=== PATIENT | female | born 1935 | race Caucasian/White ===

== ENCOUNTER 2016-11-22 05:07 | Inpatient (IN) | payer OTHER ==
[2016-11-22] VITALS (21 sets, daily range): BP systolic 106–143
[~2016-11-22] VITALS: Ht 160 cm; Wt 83.9 kg
[2016-11-22] MEDS ORDERED: CLINDAMYCIN 600 mg/50mL D5W 50 ML IV ONE (06:58)
[2016-11-22] MEDS ORDERED: LEVOFLOXACIN 500 MG/D5W 100 ML IV ONE ×2 (07:00→09:15)
[2016-11-22] MEDS ORDERED: CLINDAMYCIN PHOS 600 MG/ D5W 50 ML PREMIX IV ONE (07:00)
[2016-11-22] MEDS ORDERED: POLYMYXIN 500,000/BACIT.10,000 UNITS in NS IRR 1 L IR ONE ×2 (07:33→08:54)
[2016-11-22] MEDS ORDERED: SEVOFLURANE 15 MIN GAS INH ONE (07:45)
[2016-11-22] MEDS ORDERED: fentaNYL CITRATE 250 MCG/5 ML AMP IV ONE (07:45)
[2016-11-22] MEDS ORDERED: LR 1,000 ML IV.SOLN IV ONE (07:45)
[2016-11-22] MEDS ORDERED: CLINDAMYCIN PHOSPHATE 600 mg/50mL D5W IV ONE (07:45)
[2016-11-22] MEDS ORDERED: ROCURONIUM BROMIDE 10 MG/ML (ZEMURON) IV ONE (07:45)
[2016-11-22] MEDS ORDERED: PROPOFOL 200MG/ 20ML VIAL (DIPRIVAN) IV ONE (07:45)
[2016-11-22] MEDS ORDERED: LEVOFLOXACIN 500 MG/D5W 100 ML PIGGYBACK IV ONE (07:45)
[2016-11-22] MEDS ORDERED: BUPIVACAINE /PF 0.25% 30 ML VIAL INJ ONE (07:45)
[2016-11-22] MEDS ORDERED: FLUMAZENIL 0.1 MG/ML IVP ONE (07:45)
[2016-11-22] MEDS ORDERED: MIDAZOLAM HCL 5 MG/5 ML VIAL IVP ONE (07:45)
[2016-11-22] MEDS ORDERED: AMLO5TAB4 PO (08:31)
[2016-11-22] MEDS ORDERED: PRAV40TA PO (08:31)
[2016-11-22] MEDS ORDERED: LOSA100T11 PO (08:31)
[2016-11-22] MEDS ORDERED: HYDR25TA4 PO (08:31)
[2016-11-22] MEDS ORDERED: GABA-533 PO (08:31)
[2016-11-22] MEDS ORDERED: INSU10VI4 SUBCUT (08:31)
[2016-11-22] MEDS ORDERED: TOPXL100 PO (08:31)
[2016-11-22] MEDS ORDERED: LR 1,000 ML IV SCH (08:46)
[2016-11-22] MEDS ORDERED: METOCLOPRAMIDE HCL 10 MG/2 ML VIAL IVP PRN (09:00)
[2016-11-22] MEDS ORDERED: MORPHINE 4 MG/ML INJ. SYRINGE IVP PRN ×3 (09:00)
[2016-11-22] MEDS ORDERED: HYDROcodone/ACETAMIN 5-325 MG TAB (NORCO/ VICODIN) PO PRN ×2 (09:15)
[2016-11-22] MEDS ORDERED: ONDANSETRON HCL 4 MG/2 ML VIAL IVP PRN (09:15)
[2016-11-22] MEDS ORDERED: ACETAMINOPHEN 325 MG TABLET PO PRN (09:15)
[2016-11-22] MEDS ORDERED: SODIUM BICARBONATE 8.4% JECT 50 MEQ/50 ML SYRINGE IVP ONE ×2 (10:30→10:45)
[2016-11-22 12:51] LABS: BASOPHILS % (AUTO) 0.5 % (0.0-2.0); EOSINOPHILS # (AUTO) 0.3 K/uL (0.0-0.4); EOSINOPHILS % (AUTO) 2.6 % (0.0-4.0); HEMATOCRIT 29.8 % (36-48); HEMOGLOBIN 9.8 g/dL (12.0-16.0); LYMPHOCYTES # (AUTO) 1.7 K/uL (1.0-5.5); LYMPHOCYTES % (AUTO) 17.3 % (20.5-51.5); MEAN CORPUSCULAR HEMOGLOBIN 28 pg (27-31); MEAN CORPUSCULAR HGB CONC 33 % (32-36); MEAN CORPUSCULAR VOLUME 86 fL (79.0-98.0); MONOCYTES # (AUTO) 0.6 K/uL (0.0-1.0); MONOCYTES % (AUTO) 6.5 % (1.7-9.3); NEUTROPHILS # (AUTO) 7.3 K/uL (1.8-7.7); NEUTROPHILS % (AUTO) 73.1 % (40.0-70.0); PLATELET COUNT (AUTO) 200 K/uL (130-430); RED BLOOD CELL COUNT(AUTO) 3.45 MIL/uL (4.2-6.2); WHITE BLOOD COUNT (AUTO) 9.9 K/uL (4.8-10.8)
[2016-11-22 13:10] LABS: ANION GAP 7 (5-15); CALCIUM 8.9 mg/dL (8.4-11.0); CHLORIDE 107 mmol/L (98-107); CREATININE 2.53 mg/dL (0.55-1.30); GLUCOSE 93 mg/dL (70-99); POTASSIUM 4.8 mmol/L (3.5-5.1); SODIUM SERUM 137 mmol/L (136-145); UREA NITROGEN, BLOOD 69 mg/dL (8-21)
[2016-11-22 13:14] LABS: ALANINE AMINOTRANSFERASE 25 U/L (12-78); ALBUMIN 2.6 g/dL (3.4-4.8); ASPARTATE AMINOTRANSFERASE 25 U/L (10-37); TOTAL BILIRUBIN 0.5 mg/dL (0.0-1.0)
[2016-11-22] MEDS: LORazepam 2 MG/ML VIAL IVP PRN ×5 (15:54→23:47)
[2016-11-22] MEDS: D5/0.45 NS 1,000 ML IV SCH ×2 (16:20→18:12)
[2016-11-22] MEDS: CLINDAMYCIN 600 mg/50mL D5W 50 ML IV SCH ×2 (17:53→23:42)
[2016-11-22] MEDS: FAMOTIDINE PF 20 MG/2 ML VIAL IVP SCH (20:30)
[2016-11-23] VITALS (36 sets, daily range): BP systolic 99–163
[2016-11-23] MEDS: D5/0.45 NS 1,000 ML IV SCH ×2 (05:03→13:28)
[2016-11-23] MEDS: LORazepam 2 MG/ML VIAL IVP PRN (06:10)
[2016-11-23] MEDS: CLINDAMYCIN 600 mg/50mL D5W 50 ML IV SCH ×4 (06:10→23:25)
[2016-11-23 06:46] LABS: ALANINE AMINOTRANSFERASE 23 U/L (12-78); ALBUMIN 2.5 g/dL (3.4-4.8); ANION GAP 9 (5-15); ASPARTATE AMINOTRANSFERASE 21 U/L (10-37); CALCIUM 8.5 mg/dL (8.4-11.0); CHLORIDE 108 mmol/L (98-107); CREATININE 2.74 mg/dL (0.55-1.30); GLUCOSE 233 mg/dL (70-99); POTASSIUM 5.4 mmol/L (3.5-5.1); SODIUM SERUM 138 mmol/L (136-145); TOTAL BILIRUBIN 0.6 mg/dL (0.0-1.0); UREA NITROGEN, BLOOD 70 mg/dL (8-21)
[2016-11-23 06:53] LABS: BASOPHILS % (AUTO) 0.2 % (0.0-2.0); EOSINOPHILS % (AUTO) 0.1 % (0.0-4.0); HEMATOCRIT 26.5 % (36-48); HEMOGLOBIN 8.8 g/dL (12.0-16.0); LYMPHOCYTES % (AUTO) 11.8 % (20.5-51.5); MEAN CORPUSCULAR HEMOGLOBIN 29 pg (27-31); MEAN CORPUSCULAR HGB CONC 33 % (32-36); MEAN CORPUSCULAR VOLUME 87 fL (79.0-98.0); MONOCYTES # (AUTO) 0.6 K/uL (0.0-1.0); MONOCYTES % (AUTO) 6.9 % (1.7-9.3); NEUTROPHILS # (AUTO) 6.9 K/uL (1.8-7.7); PLATELET COUNT (AUTO) 160 K/uL (130-430); RED BLOOD CELL COUNT(AUTO) 3.06 MIL/uL (4.2-6.2); RED CELL DISTRIBUTION WIDTH 13.9 % (9.0-15.0); WHITE BLOOD COUNT (AUTO) 8.5 K/uL (4.8-10.8)
[2016-11-23] MEDS ORDERED: LEVOFLOXACIN 500 MG/D5W 100 ML IV SCH (09:00)
[2016-11-23] MEDS: FAMOTIDINE PF 20 MG/2 ML VIAL IVP SCH ×2 (09:06→20:28)
[2016-11-23] MEDS: ENOXAPARIN SODIUM 30 MG/0.3 ML SYRINGE SUBCUT SCH (09:06)
[2016-11-23] MEDS ORDERED: FUROSEMIDE 40 MG/4 ML VIAL IVP ONE (09:30)
[2016-11-23] MEDS: HYDROmorphone 1 MG INJ. 1 MG/ML AMPUL IVP PRN (20:59)
[2016-11-23] MEDS: INSULIN ASPART 100 UNITS/ML, 10 ML VIAL (NovoLOG) SUBCUT PRN (23:27)
[2016-11-24] VITALS (33 sets, daily range): BP systolic 113–178
[2016-11-24] MEDS: D5/0.45 NS 1,000 ML IV SCH ×2 (01:58→18:24)
[2016-11-24] MEDS: CLINDAMYCIN 600 mg/50mL D5W 50 ML IV SCH ×4 (06:01→23:41)
[2016-11-24] MEDS: INSULIN ASPART 100 UNITS/ML, 10 ML VIAL (NovoLOG) SUBCUT PRN ×4 (06:04→23:53)
[2016-11-24 07:00] LABS: BASOPHILS % (AUTO) 0.2 % (0.0-2.0); EOSINOPHILS # (AUTO) 0.1 K/uL (0.0-0.4); EOSINOPHILS % (AUTO) 0.4 % (0.0-4.0); HEMATOCRIT 28.3 % (36-48); HEMOGLOBIN 9.3 g/dL (12.0-16.0); LYMPHOCYTES # (AUTO) 1.7 K/uL (1.0-5.5); LYMPHOCYTES % (AUTO) 13.3 % (20.5-51.5); MEAN CORPUSCULAR HEMOGLOBIN 29 pg (27-31); MEAN CORPUSCULAR HGB CONC 33 % (32-36); MEAN CORPUSCULAR VOLUME 87 fL (79.0-98.0); MONOCYTES # (AUTO) 0.9 K/uL (0.0-1.0); MONOCYTES % (AUTO) 6.9 % (1.7-9.3); NEUTROPHILS # (AUTO) 10.4 K/uL (1.8-7.7); NEUTROPHILS % (AUTO) 79.2 % (40.0-70.0); PLATELET COUNT (AUTO) 169 K/uL (130-430); RED BLOOD CELL COUNT(AUTO) 3.24 MIL/uL (4.2-6.2)
[2016-11-24 07:12] LABS: ALANINE AMINOTRANSFERASE 24 U/L (12-78); ALBUMIN 2.8 g/dL (3.4-4.8); ANION GAP 11 (5-15); ASPARTATE AMINOTRANSFERASE 21 U/L (10-37); CALCIUM 8.8 mg/dL (8.4-11.0); CHLORIDE 103 mmol/L (98-107); CREATININE 3.06 mg/dL (0.55-1.30); GLUCOSE 310 mg/dL (70-99); POTASSIUM 4.4 mmol/L (3.5-5.1); SODIUM SERUM 135 mmol/L (136-145); UREA NITROGEN, BLOOD 62 mg/dL (8-21)
[2016-11-24 07:33] LABS: WHITE BLOOD COUNT (AUTO) 13.1 K/uL (4.8-10.8)
[2016-11-24] MEDS: MORPHINE 2 MG/ML INJ. SYRINGE IVP PRN ×3 (07:51→15:32)
[2016-11-24] MEDS: ENOXAPARIN SODIUM 30 MG/0.3 ML SYRINGE SUBCUT SCH (08:56)
[2016-11-24] MEDS: FAMOTIDINE PF 20 MG/2 ML VIAL IVP SCH ×2 (08:56→21:00)
[2016-11-24] MEDS: LEVOFLOXACIN 250 MG/D5W 50 ML IV SCH (08:57)
[2016-11-24] MEDS ORDERED: FUROSEMIDE 40 MG/4 ML VIAL IVP ONE ×2 (10:00)
[2016-11-24] MEDS ORDERED: METOPROLOL SUCCINATE 50 MG TAB.SR.24H (TOPROL XL) PO SCH (10:00)
[2016-11-24] MEDS ORDERED: METOPROLOL SUCCINATE 50 MG TAB.SR.24H (TOPROL XL) PO ONE (10:30)
[2016-11-24] MEDS ORDERED: GABAPENTIN 400 MG CAPSULE PO ONE (10:30)
[2016-11-24] MEDS: LORazepam 2 MG/ML VIAL IVP PRN ×3 (11:54→21:52)
[2016-11-24] MEDS: GABAPENTIN 400 MG CAPSULE PO SCH (20:59)
[2016-11-25] VITALS (32 sets, daily range): BP systolic 111–178
[2016-11-25] MEDS: HYDROmorphone 1 MG INJ. 1 MG/ML AMPUL IVP PRN (00:32)
[2016-11-25] MEDS: D5/0.45 NS 1,000 ML IV SCH ×2 (05:30→18:46)
[2016-11-25] MEDS: CLINDAMYCIN 600 mg/50mL D5W 50 ML IV SCH ×3 (06:00→18:40)
[2016-11-25 07:16] LABS: BASOPHILS % (AUTO) 0.4 % (0.0-2.0); EOSINOPHILS # (AUTO) 0.2 K/uL (0.0-0.4); EOSINOPHILS % (AUTO) 1.5 % (0.0-4.0); HEMATOCRIT 26.5 % (36-48); HEMOGLOBIN 8.6 g/dL (12.0-16.0); LYMPHOCYTES # (AUTO) 1.2 K/uL (1.0-5.5); LYMPHOCYTES % (AUTO) 11.7 % (20.5-51.5); MEAN CORPUSCULAR HEMOGLOBIN 28 pg (27-31); MEAN CORPUSCULAR HGB CONC 32 % (32-36); MEAN CORPUSCULAR VOLUME 88 fL (79.0-98.0); MONOCYTES # (AUTO) 0.9 K/uL (0.0-1.0); MONOCYTES % (AUTO) 8.8 % (1.7-9.3); NEUTROPHILS % (AUTO) 77.6 % (40.0-70.0); PLATELET COUNT (AUTO) 141 K/uL (130-430); RED BLOOD CELL COUNT(AUTO) 3.03 MIL/uL (4.2-6.2); RED CELL DISTRIBUTION WIDTH 14.2 % (9.0-15.0); WHITE BLOOD COUNT (AUTO) 10.3 K/uL (4.8-10.8)
[2016-11-25 07:51] LABS: ALANINE AMINOTRANSFERASE 21 U/L (12-78); ALBUMIN 2.4 g/dL (3.4-4.8); ANION GAP 10 (5-15); ASPARTATE AMINOTRANSFERASE 19 U/L (10-37); CALCIUM 8.4 mg/dL (8.4-11.0); CHLORIDE 106 mmol/L (98-107); GLUCOSE 206 mg/dL (70-99); POTASSIUM 4.1 mmol/L (3.5-5.1); SODIUM SERUM 138 mmol/L (136-145); TOTAL BILIRUBIN 0.9 mg/dL (0.0-1.0); UREA NITROGEN, BLOOD 60 mg/dL (8-21)
[2016-11-25] MEDS: METOPROLOL SUCCINATE 50 MG TAB.SR.24H (TOPROL XL) PO SCH (09:00)
[2016-11-25] MEDS: SIMVASTATIN 10 MG TABLET PO SCH (09:00)
[2016-11-25] MEDS: GABAPENTIN 400 MG CAPSULE PO SCH ×2 (09:00→20:13)
[2016-11-25] MEDS: MORPHINE 2 MG/ML INJ. SYRINGE IVP PRN ×2 (09:11→20:00)
[2016-11-25] MEDS: LORazepam 2 MG/ML VIAL IVP PRN (09:11)
[2016-11-25] MEDS: FAMOTIDINE PF 20 MG/2 ML VIAL IVP SCH ×2 (09:23→20:13)
[2016-11-25] MEDS: ENOXAPARIN SODIUM 30 MG/0.3 ML SYRINGE SUBCUT SCH (09:23)
[2016-11-25] MEDS ORDERED: FUROSEMIDE 40 MG/4 ML VIAL IVP ONE (09:45)
[2016-11-25] MEDS: INSULIN ASPART 100 UNITS/ML, 10 ML VIAL (NovoLOG) SUBCUT PRN ×2 (11:54→18:45)
[2016-11-25] MEDS ORDERED: KETOROLAC TROMETHAMINE 15 MG VIAL IVP PRN (13:00)
[2016-11-26] VITALS (33 sets, daily range): BP systolic 88–198
[2016-11-26] MEDS: CLINDAMYCIN 600 mg/50mL D5W 50 ML IV SCH ×4 (00:08→18:00)
[2016-11-26] MEDS: MORPHINE 2 MG/ML INJ. SYRINGE IVP PRN ×4 (00:10→20:18)
[2016-11-26] MEDS: INSULIN ASPART 100 UNITS/ML, 10 ML VIAL (NovoLOG) SUBCUT PRN ×4 (00:21→18:02)
[2016-11-26] MEDS: HALOPERIDOL LACTATE 5 MG/ML VIAL IVP PRN ×3 (00:35→20:17)
[2016-11-26] MEDS: LORazepam 2 MG/ML VIAL IVP PRN ×3 (01:16→05:41)
[2016-11-26] MEDS: D5/0.45 NS 1,000 ML IV SCH (02:22)
[2016-11-26 06:33] LABS: ALANINE AMINOTRANSFERASE 22 U/L (12-78); ALBUMIN 2.1 g/dL (3.4-4.8); ANION GAP 9 (5-15); ASPARTATE AMINOTRANSFERASE 32 U/L (10-37); CALCIUM 8.2 mg/dL (8.4-11.0); CHLORIDE 106 mmol/L (98-107); CREATININE 3.21 mg/dL (0.55-1.30); GLUCOSE 307 mg/dL (70-99); POTASSIUM 4.2 mmol/L (3.5-5.1); SODIUM SERUM 136 mmol/L (136-145); TOTAL BILIRUBIN 1.3 mg/dL (0.0-1.0); UREA NITROGEN, BLOOD 61 mg/dL (8-21)
[2016-11-26 06:41] LABS: BASOPHILS % (AUTO) 0.2 % (0.0-2.0); EOSINOPHILS % (AUTO) 0.1 % (0.0-4.0); HEMATOCRIT 23.6 % (36-48); HEMOGLOBIN 7.8 g/dL (12.0-16.0); LYMPHOCYTES # (AUTO) 0.4 K/uL (1.0-5.5); LYMPHOCYTES % (AUTO) 4.8 % (20.5-51.5); MEAN CORPUSCULAR HEMOGLOBIN 29 pg (27-31); MEAN CORPUSCULAR HGB CONC 33 % (32-36); MEAN CORPUSCULAR VOLUME 87 fL (79.0-98.0); MONOCYTES # (AUTO) 0.5 K/uL (0.0-1.0); MONOCYTES % (AUTO) 5.5 % (1.7-9.3); NEUTROPHILS # (AUTO) 8.3 K/uL (1.8-7.7); NEUTROPHILS % (AUTO) 89.4 % (40.0-70.0); PLATELET COUNT (AUTO) 129 K/uL (130-430); RED BLOOD CELL COUNT(AUTO) 2.71 MIL/uL (4.2-6.2); RED CELL DISTRIBUTION WIDTH 14.2 % (9.0-15.0); WHITE BLOOD COUNT (AUTO) 9.2 K/uL (4.8-10.8)
[2016-11-26] MEDS ORDERED: *TPN PER PHARMACY XX PRN (09:00)
[2016-11-26] MEDS: FAMOTIDINE PF 20 MG/2 ML VIAL IVP SCH ×2 (09:13→21:44)
[2016-11-26] MEDS: GABAPENTIN 400 MG CAPSULE PO SCH ×2 (09:14→21:44)
[2016-11-26] MEDS: SIMVASTATIN 10 MG TABLET PO SCH (09:14)
[2016-11-26] MEDS: METOPROLOL SUCCINATE 50 MG TAB.SR.24H (TOPROL XL) PO SCH (09:14)
[2016-11-26] MEDS: ENOXAPARIN SODIUM 30 MG/0.3 ML SYRINGE SUBCUT SCH (09:15)
[2016-11-26] MEDS: LEVOFLOXACIN 250 MG/D5W 50 ML IV SCH (09:16)
[2016-11-26 09:55] LABS: PHOSPHORUS 5.2 mg/dL (2.7-4.5)
[2016-11-26 10:35] LABS: INR 1.1 (0.8-1.2); PROTHROMBIN TIME 12.2 SECS (9.5-12.5)
[2016-11-26] MEDS ORDERED: D5/0.45 NS 1,000 ML IV SCH (18:00)
[2016-11-26] MEDS ORDERED: IPRATROPIUM/ALBUTEROL SULFATE 3 ML AMPUL.NEB INH PRN (22:15)
[2016-11-26] MEDS ORDERED: IPRATROPIUM/ALBUTEROL SULFATE 3 ML AMPUL.NEB INH ONE (23:00)
[2016-11-27] VITALS (30 sets, daily range): BP systolic 95–181
[2016-11-27] MEDS: CLINDAMYCIN 600 mg/50mL D5W 50 ML IV SCH ×4 (01:27→18:21)
[2016-11-27] MEDS: INSULIN ASPART 100 UNITS/ML, 10 ML VIAL (NovoLOG) SUBCUT PRN ×4 (01:41→18:25)
[2016-11-27] MEDS: HALOPERIDOL LACTATE 5 MG/ML VIAL IVP PRN ×2 (02:12→23:13)
[2016-11-27] MEDS ORDERED: COMMUNICATION ORDER XX ONE (02:45)
[2016-11-27] MEDS: IPRATROPIUM/ALBUTEROL SULFATE 3 ML AMPUL.NEB INH SCH ×3 (07:10→20:45)
[2016-11-27 07:34] LABS: ALANINE AMINOTRANSFERASE 23 U/L (12-78); ALBUMIN 2.1 g/dL (3.4-4.8); ANION GAP 14 (5-15); ASPARTATE AMINOTRANSFERASE 36 U/L (10-37); CALCIUM 8.4 mg/dL (8.4-11.0); CHLORIDE 108 mmol/L (98-107); CREATININE 3.54 mg/dL (0.55-1.30); GLUCOSE 215 mg/dL (70-99); POTASSIUM 4.2 mmol/L (3.5-5.1); SODIUM SERUM 138 mmol/L (136-145); TOTAL BILIRUBIN 1.4 mg/dL (0.0-1.0); UREA NITROGEN, BLOOD 67 mg/dL (8-21)
[2016-11-27 07:59] LABS: BASOPHILS % (AUTO) 0.2 % (0.0-2.0); EOSINOPHILS % (AUTO) 0.2 % (0.0-4.0); HEMATOCRIT 24.1 % (36-48); HEMOGLOBIN 7.9 g/dL (12.0-16.0); LYMPHOCYTES # (AUTO) 0.6 K/uL (1.0-5.5); LYMPHOCYTES % (AUTO) 7.1 % (20.5-51.5); MEAN CORPUSCULAR HEMOGLOBIN 29 pg (27-31); MEAN CORPUSCULAR HGB CONC 33 % (32-36); MEAN CORPUSCULAR VOLUME 88 fL (79.0-98.0); MONOCYTES # (AUTO) 0.7 K/uL (0.0-1.0); MONOCYTES % (AUTO) 8.6 % (1.7-9.3); NEUTROPHILS # (AUTO) 6.9 K/uL (1.8-7.7); NEUTROPHILS % (AUTO) 83.9 % (40.0-70.0); PLATELET COUNT (AUTO) 124 K/uL (130-430); RED BLOOD CELL COUNT(AUTO) 2.74 MIL/uL (4.2-6.2); RED CELL DISTRIBUTION WIDTH 14.5 % (9.0-15.0); WHITE BLOOD COUNT (AUTO) 8.2 K/uL (4.8-10.8)
[2016-11-27] MEDS: ENOXAPARIN SODIUM 30 MG/0.3 ML SYRINGE SUBCUT SCH (09:54)
[2016-11-27] MEDS: SIMVASTATIN 10 MG TABLET PO SCH (09:56)
[2016-11-27] MEDS: METOPROLOL SUCCINATE 50 MG TAB.SR.24H (TOPROL XL) PO SCH (09:56)
[2016-11-27] MEDS: GABAPENTIN 400 MG CAPSULE PO SCH ×2 (09:56→21:57)
[2016-11-27] MEDS: FAMOTIDINE PF 20 MG/2 ML VIAL IVP SCH ×2 (09:57→21:57)
[2016-11-27] MEDS: LORazepam 2 MG/ML VIAL IVP PRN ×2 (12:09→22:39)
[2016-11-27] MEDS: SODIUM BICARBONATE 8.4% JECT 150 MEQ in D5W 1,000 ML IV SCH (16:18)
[2016-11-27] MEDS ORDERED: SODIUM BICARBONATE 8.4% JECT 50 MEQ/50 ML SYRINGE ONE ×2 (16:20→16:22)
[2016-11-27] MEDS: FAT EMULSIONS 250 ML IV SCH (21:41)
[2016-11-27] MEDS: [UNRECOGNIZED DRUG - OTHER] IV SCH ×9 (21:43)
[2016-11-27] MEDS: SODIUM ACETATE IV SCH ×9 (21:43)
[2016-11-27] MEDS: POTASSIUM ACETATE IV SCH ×9 (21:43)
[2016-11-27] MEDS: TPN CENTRAL IV SCH ×9 (21:43)
[2016-11-27] MEDS: FUROSEMIDE 40 MG/4 ML VIAL IVP SCH (21:58)
[2016-11-27] MEDS: methylPREDNISolone SOD SUCC/PF 62.5 MG/ML VIAL IVP SCH (21:58)
[2016-11-27] MEDS: MORPHINE 2 MG/ML INJ. SYRINGE IVP PRN (23:14)
[2016-11-28] VITALS (33 sets, daily range): BP systolic 103–214
[2016-11-28] MEDS: CLINDAMYCIN 600 mg/50mL D5W 50 ML IV SCH ×4 (00:40→17:33)
[2016-11-28] MEDS: INSULIN ASPART 100 UNITS/ML, 10 ML VIAL (NovoLOG) SUBCUT PRN ×4 (00:48→18:18)
[2016-11-28] MEDS: LORazepam 2 MG/ML VIAL IVP PRN ×3 (00:52→21:43)
[2016-11-28] MEDS: IPRATROPIUM/ALBUTEROL SULFATE 3 ML AMPUL.NEB INH SCH ×4 (01:52→19:33)
[2016-11-28] MEDS: MORPHINE 2 MG/ML INJ. SYRINGE IVP PRN ×2 (02:58→21:44)
[2016-11-28] MEDS: methylPREDNISolone SOD SUCC/PF 62.5 MG/ML VIAL IVP SCH ×3 (05:10→21:29)
[2016-11-28] MEDS: HALOPERIDOL LACTATE 5 MG/ML VIAL IVP PRN ×2 (05:12→18:10)
[2016-11-28 05:33] LABS: BASOPHILS % (AUTO) 0.1 % (0.0-2.0); EOSINOPHILS % (AUTO) 0.1 % (0.0-4.0); HEMATOCRIT 25.9 % (36-48); HEMOGLOBIN 8.3 g/dL (12.0-16.0); LYMPHOCYTES # (AUTO) 0.4 K/uL (1.0-5.5); LYMPHOCYTES % (AUTO) 3.8 % (20.5-51.5); MEAN CORPUSCULAR HEMOGLOBIN 28 pg (27-31); MEAN CORPUSCULAR HGB CONC 32 % (32-36); MEAN CORPUSCULAR VOLUME 87 fL (79.0-98.0); MONOCYTES # (AUTO) 0.3 K/uL (0.0-1.0); MONOCYTES % (AUTO) 2.7 % (1.7-9.3); NEUTROPHILS # (AUTO) 10.2 K/uL (1.8-7.7); NEUTROPHILS % (AUTO) 93.3 % (40.0-70.0); PLATELET COUNT (AUTO) 152 K/uL (130-430); RED BLOOD CELL COUNT(AUTO) 2.98 MIL/uL (4.2-6.2); RED CELL DISTRIBUTION WIDTH 14.4 % (9.0-15.0); WHITE BLOOD COUNT (AUTO) 10.9 K/uL (4.8-10.8)
[2016-11-28 05:37] LABS: INR 1.3 (0.8-1.2); PROTHROMBIN TIME 13.7 SECS (9.5-12.5)
[2016-11-28 05:42] LABS: ALANINE AMINOTRANSFERASE 28 U/L (12-78); ALBUMIN 2.1 g/dL (3.4-4.8); ANION GAP 14 (5-15); ASPARTATE AMINOTRANSFERASE 30 U/L (10-37); CALCIUM 8.3 mg/dL (8.4-11.0); CHLORIDE 104 mmol/L (98-107); CREATININE 4.09 mg/dL (0.55-1.30); PHOSPHORUS 5.4 mg/dL (2.7-4.5); POTASSIUM 4.4 mmol/L (3.5-5.1); SODIUM SERUM 138 mmol/L (136-145); TOTAL BILIRUBIN 1.6 mg/dL (0.0-1.0); TRIGLYCERIDES 156 mg/dL (30-150); UREA NITROGEN, BLOOD 75 mg/dL (8-21)
[2016-11-28 05:44] LABS: GLUCOSE 467 mg/dL (70-99)
[2016-11-28] MEDS: FAMOTIDINE PF 20 MG/2 ML VIAL IVP SCH ×2 (09:41→20:54)
[2016-11-28] MEDS: GABAPENTIN 400 MG CAPSULE PO SCH ×2 (09:41→20:54)
[2016-11-28] MEDS: METOPROLOL SUCCINATE 50 MG TAB.SR.24H (TOPROL XL) PO SCH (09:42)
[2016-11-28] MEDS: LEVOFLOXACIN 250 MG/D5W 50 ML IV SCH (09:42)
[2016-11-28] MEDS: SIMVASTATIN 10 MG TABLET PO SCH (09:43)
[2016-11-28] MEDS: ENOXAPARIN SODIUM 30 MG/0.3 ML SYRINGE SUBCUT SCH (09:43)
[2016-11-28] MEDS: FUROSEMIDE 40 MG/4 ML VIAL IVP SCH ×2 (09:43→20:53)
[2016-11-28] MEDS: SODIUM BICARBONATE 8.4% JECT 150 MEQ in D5W 1,000 ML IV SCH (09:45)
[2016-11-28] MEDS ORDERED: HEPARIN SODIUM,PORCINE 5000 UNITS/ML VIAL ONE ×2 (10:14→16:06)
[2016-11-28] MEDS: TPN CENTRAL IV SCH ×18 (16:40→17:34)
[2016-11-28] MEDS: SODIUM ACETATE IV SCH ×18 (16:40→17:34)
[2016-11-28] MEDS: POTASSIUM ACETATE IV SCH ×18 (16:40→17:34)
[2016-11-28] MEDS: [UNRECOGNIZED DRUG - OTHER] IV SCH ×18 (16:40→17:34)
[2016-11-28] MEDS: FAT EMULSIONS 250 ML IV SCH ×2 (17:36→17:39)
[2016-11-28] MEDS: cloNIDine HCL 0.1 MG TABLET NG SCH (17:40)
[2016-11-29] VITALS (29 sets, daily range): BP systolic 116–209
[2016-11-29] MEDS: HALOPERIDOL LACTATE 5 MG/ML VIAL IVP PRN ×3 (00:03→22:44)
[2016-11-29] MEDS: MORPHINE 2 MG/ML INJ. SYRINGE IVP PRN ×4 (00:03→22:46)
[2016-11-29] MEDS: cloNIDine HCL 0.1 MG TABLET NG SCH ×4 (00:28→18:14)
[2016-11-29] MEDS: CLINDAMYCIN 600 mg/50mL D5W 50 ML IV SCH ×2 (00:29→05:50)
[2016-11-29] MEDS: INSULIN ASPART 100 UNITS/ML, 10 ML VIAL (NovoLOG) SUBCUT PRN ×4 (00:53→23:28)
[2016-11-29] MEDS: IPRATROPIUM/ALBUTEROL SULFATE 3 ML AMPUL.NEB INH SCH ×4 (01:15→19:27)
[2016-11-29] MEDS ORDERED: INSULIN ASPART 100 UNITS/ML, 10 ML VIAL SUBCUT ONE ×2 (01:45→03:15)
[2016-11-29] MEDS: LORazepam 2 MG/ML VIAL IVP PRN ×2 (03:23→18:47)
[2016-11-29] MEDS: methylPREDNISolone SOD SUCC/PF 62.5 MG/ML VIAL IVP SCH ×3 (05:50→21:30)
[2016-11-29 06:14] LABS: BASOPHILS % (AUTO) 0.1 % (0.0-2.0); EOSINOPHILS % (AUTO) 0.1 % (0.0-4.0); HEMATOCRIT 25.6 % (36-48); HEMOGLOBIN 8.2 g/dL (12.0-16.0); LYMPHOCYTES # (AUTO) 0.4 K/uL (1.0-5.5); LYMPHOCYTES % (AUTO) 3.4 % (20.5-51.5); MEAN CORPUSCULAR HEMOGLOBIN 28 pg (27-31); MEAN CORPUSCULAR HGB CONC 32 % (32-36); MEAN CORPUSCULAR VOLUME 87 fL (79.0-98.0); MONOCYTES # (AUTO) 0.6 K/uL (0.0-1.0); MONOCYTES % (AUTO) 4.9 % (1.7-9.3); NEUTROPHILS # (AUTO) 10.3 K/uL (1.8-7.7); NEUTROPHILS % (AUTO) 91.5 % (40.0-70.0); PLATELET COUNT (AUTO) 144 K/uL (130-430); RED BLOOD CELL COUNT(AUTO) 2.95 MIL/uL (4.2-6.2); WHITE BLOOD COUNT (AUTO) 11.3 K/uL (4.8-10.8)
[2016-11-29 06:48] LABS: ALANINE AMINOTRANSFERASE 25 U/L (12-78); ALBUMIN 2.2 g/dL (3.4-4.8); ANION GAP 12 (5-15); ASPARTATE AMINOTRANSFERASE 21 U/L (10-37); CALCIUM 8.5 mg/dL (8.4-11.0); CHLORIDE 101 mmol/L (98-107); CREATININE 3.54 mg/dL (0.55-1.30); POTASSIUM 3.2 mmol/L (3.5-5.1); SODIUM SERUM 136 mmol/L (136-145); TOTAL BILIRUBIN 1.1 mg/dL (0.0-1.0); UREA NITROGEN, BLOOD 65 mg/dL (8-21)
[2016-11-29 06:55] LABS: GLUCOSE 452 mg/dL (70-99)
[2016-11-29] MEDS: FAMOTIDINE PF 20 MG/2 ML VIAL IVP SCH ×2 (08:58→20:43)
[2016-11-29] MEDS: FUROSEMIDE 40 MG/4 ML VIAL IVP SCH ×2 (08:58→20:43)
[2016-11-29] MEDS: METOPROLOL SUCCINATE 50 MG TAB.SR.24H (TOPROL XL) PO SCH (08:59)
[2016-11-29] MEDS: SIMVASTATIN 10 MG TABLET PO SCH (08:59)
[2016-11-29] MEDS: GABAPENTIN 400 MG CAPSULE PO SCH ×2 (08:59→20:43)
[2016-11-29] MEDS: ENOXAPARIN SODIUM 30 MG/0.3 ML SYRINGE SUBCUT SCH (09:00)
[2016-11-29] MEDS ORDERED: POTASSIUM CHLORIDE 30 MEQ in NS 250 ML IV ONE (09:45)
[2016-11-29] MEDS ORDERED: cloNIDine HCL 0.1 MG TABLET PO ONE (14:00)
[2016-11-29] MEDS ORDERED: TPN CENTRAL IV SCH ×10 (18:00)
[2016-11-29] MEDS ORDERED: [UNRECOGNIZED DRUG - OTHER] IV SCH ×10 (18:00)
[2016-11-29] MEDS ORDERED: POTASSIUM CHLORIDE IV SCH ×10 (18:00)
[2016-11-29] MEDS ORDERED: SODIUM ACETATE IV SCH ×10 (18:00)
[2016-11-29] MEDS ORDERED: INSULIN GLARGINE 100 UNITS/ML 10 ML VIAL SUBCUT SCH (21:00)
[2016-11-30] VITALS (27 sets, daily range): BP systolic 92–199
[2016-11-30] MEDS: IPRATROPIUM/ALBUTEROL SULFATE 3 ML AMPUL.NEB INH SCH ×4 (00:38→19:34)
[2016-11-30] MEDS: cloNIDine HCL 0.1 MG TABLET NG SCH ×4 (00:40→18:06)
[2016-11-30] MEDS: hydrALAZINE HCL 20 MG/ML VIAL IVP PRN (02:14)
[2016-11-30] MEDS: HALOPERIDOL LACTATE 5 MG/ML VIAL IVP PRN (02:55)
[2016-11-30] MEDS: LORazepam 2 MG/ML VIAL IVP PRN ×2 (02:56→23:08)
[2016-11-30] MEDS: methylPREDNISolone SOD SUCC/PF 62.5 MG/ML VIAL IVP SCH (05:47)
[2016-11-30] MEDS: INSULIN ASPART 100 UNITS/ML, 10 ML VIAL (NovoLOG) SUBCUT PRN ×3 (06:09→18:46)
[2016-11-30 06:47] LABS: ALANINE AMINOTRANSFERASE 193 U/L (12-78); ALBUMIN 2.1 g/dL (3.4-4.8); ANION GAP 14 (5-15); ASPARTATE AMINOTRANSFERASE 392 U/L (10-37); CALCIUM 8.3 mg/dL (8.4-11.0); CHLORIDE 103 mmol/L (98-107); CREATININE 4.66 mg/dL (0.55-1.30); GLUCOSE 363 mg/dL (70-99); PHOSPHORUS 4.5 mg/dL (2.7-4.5); POTASSIUM 4.1 mmol/L (3.5-5.1); SODIUM SERUM 138 mmol/L (136-145); TOTAL BILIRUBIN 1.2 mg/dL (0.0-1.0); UREA NITROGEN, BLOOD 100 mg/dL (8-21)
[2016-11-30 07:11] LABS: BASOPHILS % (AUTO) 0.1 % (0.0-2.0); EOSINOPHILS % (AUTO) 0.1 % (0.0-4.0); HEMATOCRIT 24.8 % (36-48); LYMPHOCYTES # (AUTO) 0.6 K/uL (1.0-5.5); LYMPHOCYTES % (AUTO) 6.6 % (20.5-51.5); MEAN CORPUSCULAR HEMOGLOBIN 28 pg (27-31); MEAN CORPUSCULAR HGB CONC 33 % (32-36); MEAN CORPUSCULAR VOLUME 86 fL (79.0-98.0); MONOCYTES # (AUTO) 0.6 K/uL (0.0-1.0); MONOCYTES % (AUTO) 6.5 % (1.7-9.3); NEUTROPHILS # (AUTO) 8.1 K/uL (1.8-7.7); NEUTROPHILS % (AUTO) 86.7 % (40.0-70.0); PLATELET COUNT (AUTO) 138 K/uL (130-430); RED BLOOD CELL COUNT(AUTO) 2.87 MIL/uL (4.2-6.2); RED CELL DISTRIBUTION WIDTH 14.3 % (9.0-15.0); WHITE BLOOD COUNT (AUTO) 9.3 K/uL (4.8-10.8)
[2016-11-30 07:14] LABS: HEMOGLOBIN 8.1 g/dL (12.0-16.0)
[2016-11-30] MEDS: METOPROLOL SUCCINATE 50 MG TAB.SR.24H (TOPROL XL) PO SCH (09:00)
[2016-11-30] MEDS: LEVOFLOXACIN 250 MG/D5W 50 ML IV SCH (09:08)
[2016-11-30] MEDS: GABAPENTIN 400 MG CAPSULE PO SCH ×2 (09:11→20:54)
[2016-11-30] MEDS: SIMVASTATIN 10 MG TABLET PO SCH (09:11)
[2016-11-30] MEDS: FUROSEMIDE 40 MG/4 ML VIAL IVP SCH ×2 (09:11→21:03)
[2016-11-30] MEDS: FAMOTIDINE PF 20 MG/2 ML VIAL IVP SCH ×2 (09:12→20:58)
[2016-11-30] MEDS: ENOXAPARIN SODIUM 30 MG/0.3 ML SYRINGE SUBCUT SCH (09:12)
[2016-11-30] MEDS ORDERED: MIDAZOLAM HCL 2 MG/2 ML VIAL (VERSED) ONE (09:23)
[2016-11-30] MEDS ORDERED: COMMUNICATION ORDER XX ONE (10:00)
[2016-11-30 10:16] LABS: HEPATITIS B SURFACE AG Negative (Negative); HEPATITIS C VIRUS AB <0.1 s/co ratio (0.0-0.9)
[2016-11-30] MEDS: MORPHINE 2 MG/ML INJ. SYRINGE IVP PRN ×4 (12:28→23:09)
[2016-11-30] MEDS ORDERED: HEPARIN SODIUM,PORCINE 5000 UNITS/ML VIAL ONE (13:47)
[2016-11-30] MEDS: methylPREDNISolone SOD SUCC 40 MG/ML VIAL IVP SCH (20:54)
[2016-12-01] VITALS (34 sets, daily range): BP systolic 94–177
[2016-12-01] MEDS: INSULIN ASPART 100 UNITS/ML, 10 ML VIAL (NovoLOG) SUBCUT PRN ×7 (00:07→21:34)
[2016-12-01] MEDS: hydrALAZINE HCL 20 MG/ML VIAL IVP PRN ×4 (00:15→17:35)
[2016-12-01] MEDS: cloNIDine HCL 0.1 MG TABLET NG SCH ×4 (00:16→18:04)
[2016-12-01] MEDS: IPRATROPIUM/ALBUTEROL SULFATE 3 ML AMPUL.NEB INH SCH ×4 (01:03→19:33)
[2016-12-01 06:29] LABS: BASOPHILS % (AUTO) 0.1 % (0.0-2.0); HEMATOCRIT 30.4 % (36-48); HEMOGLOBIN 9.7 g/dL (12.0-16.0); LYMPHOCYTES # (AUTO) 0.6 K/uL (1.0-5.5); LYMPHOCYTES % (AUTO) 3.3 % (20.5-51.5); MEAN CORPUSCULAR HEMOGLOBIN 28 pg (27-31); MEAN CORPUSCULAR HGB CONC 32 % (32-36); MEAN CORPUSCULAR VOLUME 87 fL (79.0-98.0); MONOCYTES # (AUTO) 0.8 K/uL (0.0-1.0); MONOCYTES % (AUTO) 4.7 % (1.7-9.3); NEUTROPHILS # (AUTO) 16.4 K/uL (1.8-7.7); NEUTROPHILS % (AUTO) 91.9 % (40.0-70.0); PLATELET COUNT (AUTO) 146 K/uL (130-430); RED BLOOD CELL COUNT(AUTO) 3.49 MIL/uL (4.2-6.2); WHITE BLOOD COUNT (AUTO) 17.8 K/uL (4.8-10.8)
[2016-12-01 06:49] LABS: ALANINE AMINOTRANSFERASE 725 U/L (12-78); ALBUMIN 2.6 g/dL (3.4-4.8); ANION GAP 16 (5-15); ASPARTATE AMINOTRANSFERASE 906 U/L (10-37); CALCIUM 8.3 mg/dL (8.4-11.0); CHLORIDE 99 mmol/L (98-107); CREATININE 4.63 mg/dL (0.55-1.30); SODIUM SERUM 137 mmol/L (136-145); TOTAL BILIRUBIN 2.2 mg/dL (0.0-1.0)
[2016-12-01 07:02] LABS: GLUCOSE 443 mg/dL (70-99); UREA NITROGEN, BLOOD 105 mg/dL (8-21)
[2016-12-01] MEDS ORDERED: INSULIN ASPART 100 UNITS/ML, 10 ML VIAL SUBCUT ONE (08:45)
[2016-12-01] MEDS: FAMOTIDINE PF 20 MG/2 ML VIAL IVP SCH ×2 (08:54→21:24)
[2016-12-01] MEDS: methylPREDNISolone SOD SUCC 40 MG/ML VIAL IVP SCH ×2 (08:54→21:24)
[2016-12-01] MEDS: FUROSEMIDE 40 MG/4 ML VIAL IVP SCH ×2 (08:55→21:24)
[2016-12-01] MEDS: ENOXAPARIN SODIUM 30 MG/0.3 ML SYRINGE SUBCUT SCH (08:56)
[2016-12-01] MEDS: METOPROLOL SUCCINATE 50 MG TAB.SR.24H (TOPROL XL) PO SCH (08:57)
[2016-12-01] MEDS: GABAPENTIN 400 MG CAPSULE PO SCH ×2 (08:58→21:23)
[2016-12-01] MEDS: SIMVASTATIN 10 MG TABLET PO SCH (08:58)
[2016-12-01 09:55] LABS: BILIRUBIN,URINE NEGATIVE (NEGATIVE); BLOOD, URINE TRACE (NEGATIVE); CLARITY/URINE CLEAR (CLEAR); COLOR,URINE YELLOW (YELLOW); GLUCOSE,URINE 2+ (NEGATIVE); KETONES,URINE NEGATIVE (NEGATIVE); LEUKOCYTE ESTERASE ,URINE NEGATIVE (NEGATIVE); NITRITE, URINE NEGATIVE (NEGATIVE); PROTEIN URINE 2+ (NEGATIVE); UROBILINOGEN,URINE 0.2 (0.2-1.0)
[2016-12-01 10:00] LABS: BACTERIA,URINE MODERATE /HPF (None Seen); HYALINE CASTS, URINE 0-10 /LPF (None Seen); RBC,URINE 0-3 /HPF (0-3)
[2016-12-01] MEDS ORDERED: HEPARIN SODIUM,PORCINE 5000 UNITS/ML VIAL SUBCUT ONE (10:15)
[2016-12-01] MEDS: AZTREONAM 1 GM in NS 50 ML IV SCH ×3 (10:37→21:23)
[2016-12-01] MEDS ORDERED: HEPARIN SODIUM,PORCINE 5000 UNITS/ML VIAL ONE (11:29)
[2016-12-01] MEDS ORDERED: VANCOMYCIN HCL 1,250 MG in NS 250 ML IV SCH (12:00)
[2016-12-01] MEDS: VANCOMYCIN HCL 1,250 MG in NS 250 ML IV SCH (12:19)
[2016-12-02] VITALS (35 sets, daily range): BP systolic 101–191
[2016-12-02] MEDS: INSULIN ASPART 100 UNITS/ML, 10 ML VIAL (NovoLOG) SUBCUT PRN ×2 (01:38→06:01)
[2016-12-02] MEDS: IPRATROPIUM/ALBUTEROL SULFATE 3 ML AMPUL.NEB INH SCH ×4 (01:45→19:27)
[2016-12-02] MEDS: cloNIDine HCL 0.1 MG TABLET NG SCH ×4 (01:47→18:00)
[2016-12-02] MEDS: hydrALAZINE HCL 20 MG/ML VIAL IVP PRN (02:52)
[2016-12-02] MEDS: MORPHINE 2 MG/ML INJ. SYRINGE IVP PRN (03:58)
[2016-12-02] MEDS ORDERED: INSULIN ASPART 100 UNITS/ML, 10 ML VIAL SUBCUT ONE ×3 (04:15→09:00)
[2016-12-02] MEDS: ACETAMINOPHEN 650 MG/20.3 ML UDC NG PRN (04:27)
[2016-12-02] MEDS: AZTREONAM 1 GM in NS 50 ML IV SCH (05:57)
[2016-12-02 06:34] LABS: INR 1.4 (0.8-1.2); PROTHROMBIN TIME 15.9 SECS (9.5-12.5)
[2016-12-02 06:38] LABS: HEMATOCRIT 30.9 % (36-48); MEAN CORPUSCULAR HEMOGLOBIN 29 pg (27-31)
[2016-12-02 06:53] LABS: ALBUMIN 2.5 g/dL (3.4-4.8); ANION GAP 20 (5-15); CALCIUM 7.7 mg/dL (8.4-11.0); CHLORIDE 101 mmol/L (98-107); CREATININE 4.76 mg/dL (0.55-1.30); POTASSIUM 3.5 mmol/L (3.5-5.1); SODIUM SERUM 141 mmol/L (136-145)
[2016-12-02 07:00] LABS: HEMOGLOBIN 10.2 g/dL (12.0-16.0); MEAN CORPUSCULAR HGB CONC 33 % (32-36); MEAN CORPUSCULAR VOLUME 87 fL (79.0-98.0); PLATELET COUNT (AUTO) 148 K/uL (130-430); RED BLOOD CELL COUNT(AUTO) 3.54 MIL/uL (4.2-6.2); RED CELL DISTRIBUTION WIDTH 14.7 % (9.0-15.0); WHITE BLOOD COUNT (AUTO) 22.9 K/uL (4.8-10.8)
[2016-12-02 07:53] LABS: GLUCOSE 579 mg/dL (70-99)
[2016-12-02 07:54] LABS: ALANINE AMINOTRANSFERASE 3711 U/L (12-78); ASPARTATE AMINOTRANSFERASE 4598 U/L (10-37); UREA NITROGEN, BLOOD 137 mg/dL (8-21)
[2016-12-02 07:55] LABS: ATYPICAL LYMPHOCYTES % 0 % (0-0); BAND % (MANUAL) 0 % (0-6); BASOPHILS % (MANUAL) 0 % (0-2); EOSINOPHILS % (MANUAL) 0 % (0-7); LYMPHOCYTES % (MANUAL) 1 % (20-46); MONOCYTES % (MANUAL) 2 % (0-11)
[2016-12-02] MEDS: GABAPENTIN 400 MG CAPSULE PO SCH ×2 (09:30→22:07)
[2016-12-02] MEDS: METOPROLOL SUCCINATE 50 MG TAB.SR.24H (TOPROL XL) PO SCH (09:30)
[2016-12-02] MEDS: FUROSEMIDE 40 MG/4 ML VIAL IVP SCH ×2 (09:31→22:07)
[2016-12-02] MEDS: FAMOTIDINE PF 20 MG/2 ML VIAL IVP SCH ×2 (09:31→22:07)
[2016-12-02] MEDS ORDERED: INSULIN REGULAR, HUMAN 101.01 UNITS in NS 99 ML IV PRN ×2 (09:45)
[2016-12-02] MEDS ORDERED: DEXTROSE 50% JECT 50 ML DISP.SYRIN IVP PRN (10:30)
[2016-12-02 11:38] LABS: AMYLASE 72 U/L (0-100); LIPASE 1000 U/L (73-393)
[2016-12-02] MEDS ORDERED: NOREPINEPHRINE BITARTRATE 4 MG in NS 246 ML IV PRN (11:45)
[2016-12-02] MEDS ORDERED: NOREPINEPHRINE 4 MG/4 ML VIAL IV ONE (11:55)
[2016-12-02] MEDS ORDERED: HEPARIN SODIUM, PORCINE 10,000 UNITS/ 10 ML VIAL MC PRN (12:45)
[2016-12-02] MEDS: MEROPENEM 500 MG in NS 50 ML IV SCH ×2 (12:49→22:02)
[2016-12-02] MEDS ORDERED: HEPARIN SODIUM,PORCINE 5000 UNITS/ML VIAL ONE (12:50)
[2016-12-02] MEDS: FLUCONAZOLE 200 mg/ NS 100 ML IV SCH (14:15)
[2016-12-02] MEDS: INSULIN REGULAR, HUMAN 100 UNITS in NS 99 ML IV PRN ×4 (14:40→20:21)
[2016-12-02] MEDS: HEPARIN SODIUM,PORCINE 5000 UNITS/ML VIAL SUBCUT SCH (22:13)
[2016-12-03] VITALS (32 sets, daily range): BP systolic 71–150
[2016-12-03] MEDS: INSULIN REGULAR, HUMAN 100 UNITS in NS 99 ML IV PRN ×6 (02:09→04:17)
[2016-12-03] MEDS: IPRATROPIUM/ALBUTEROL SULFATE 3 ML AMPUL.NEB INH SCH ×4 (02:13→20:30)
[2016-12-03] MEDS ORDERED: DIGOXIN 0.5 MG/2 ML AMP IVP ONE ×3 (03:35→17:00)
[2016-12-03] MEDS ORDERED: DIGOXIN 0.5 MG/2 ML AMP ONE ×2 (03:46→10:06)
[2016-12-03] MEDS: cloNIDine HCL 0.1 MG TABLET NG SCH ×5 (06:08→23:38)
[2016-12-03 06:41] LABS: BASOPHILS # (AUTO) 0.1 K/uL (0.0-0.2); BASOPHILS % (AUTO) 0.4 % (0.0-2.0); HEMOGLOBIN 11.5 g/dL (12.0-16.0); LYMPHOCYTES # (AUTO) 0.8 K/uL (1.0-5.5); LYMPHOCYTES % (AUTO) 2.9 % (20.5-51.5); MEAN CORPUSCULAR HEMOGLOBIN 29 pg (27-31); MEAN CORPUSCULAR HGB CONC 32 % (32-36); MEAN CORPUSCULAR VOLUME 89 fL (79.0-98.0); MONOCYTES # (AUTO) 1.2 K/uL (0.0-1.0); MONOCYTES % (AUTO) 4.3 % (1.7-9.3); NEUTROPHILS # (AUTO) 26.2 K/uL (1.8-7.7); NEUTROPHILS % (AUTO) 92.4 % (40.0-70.0); PLATELET COUNT (AUTO) 136 K/uL (130-430); RED BLOOD CELL COUNT(AUTO) 4.04 MIL/uL (4.2-6.2); RED CELL DISTRIBUTION WIDTH 15.1 % (9.0-15.0)
[2016-12-03 06:59] LABS: ALBUMIN 2.6 g/dL (3.4-4.8); ANION GAP 12 (5-15); CALCIUM 7.8 mg/dL (8.4-11.0); CHLORIDE 102 mmol/L (98-107); CREATININE 3.68 mg/dL (0.55-1.30); GLUCOSE 344 mg/dL (70-99); POTASSIUM 3.1 mmol/L (3.5-5.1); SODIUM SERUM 140 mmol/L (136-145); UREA NITROGEN, BLOOD 96 mg/dL (8-21)
[2016-12-03 07:11] LABS: ALANINE AMINOTRANSFERASE 3531 U/L (12-78); ASPARTATE AMINOTRANSFERASE 1445 U/L (10-37)
[2016-12-03 07:30] LABS: WHITE BLOOD COUNT (AUTO) 28.3 K/uL (4.8-10.8)
[2016-12-03] MEDS: METOPROLOL SUCCINATE 50 MG TAB.SR.24H (TOPROL XL) PO SCH (08:58)
[2016-12-03] MEDS: GABAPENTIN 400 MG CAPSULE PO SCH ×2 (08:58→20:23)
[2016-12-03] MEDS: FAMOTIDINE PF 20 MG/2 ML VIAL IVP SCH ×2 (08:59→20:22)
[2016-12-03] MEDS: HEPARIN SODIUM,PORCINE 5000 UNITS/ML VIAL SUBCUT SCH ×2 (09:00→20:22)
[2016-12-03] MEDS: FUROSEMIDE 40 MG/4 ML VIAL IVP SCH ×2 (09:01→20:23)
[2016-12-03] MEDS: ACETAMINOPHEN 650 MG/20.3 ML UDC NG PRN ×2 (09:02→15:12)
[2016-12-03] MEDS: MEROPENEM 500 MG in NS 50 ML IV SCH ×2 (09:02→20:37)
[2016-12-03] MEDS: FLUCONAZOLE 200 mg/ NS 100 ML IV SCH (09:44)
[2016-12-03] MEDS ORDERED: INSULIN REGULAR, HUMAN 100 UNITS in NS 99 ML IV PRN ×2 (12:00)
[2016-12-03] MEDS ORDERED: DEXTROSE 50% JECT 50 ML DISP.SYRIN IVP PRN (12:00)
[2016-12-03] MEDS ORDERED: DIGOXIN 0.5 MG/2 ML AMP IVP PRN (21:00)
[2016-12-04] VITALS (36 sets, daily range): BP systolic 95–138
[2016-12-04] MEDS: IPRATROPIUM/ALBUTEROL SULFATE 3 ML AMPUL.NEB INH SCH ×4 (02:32→19:47)
[2016-12-04] MEDS: ACETAMINOPHEN 650 MG/20.3 ML UDC NG PRN (04:22)
[2016-12-04] MEDS: cloNIDine HCL 0.1 MG TABLET NG SCH ×3 (05:23→18:00)
[2016-12-04 06:58] LABS: BASOPHILS # (AUTO) 0.1 K/uL (0.0-0.2); BASOPHILS % (AUTO) 0.3 % (0.0-2.0); HEMATOCRIT 36.6 % (36-48); HEMOGLOBIN 11.9 g/dL (12.0-16.0); LYMPHOCYTES % (AUTO) 4.6 % (20.5-51.5); MEAN CORPUSCULAR HEMOGLOBIN 29 pg (27-31); MEAN CORPUSCULAR HGB CONC 32 % (32-36); MEAN CORPUSCULAR VOLUME 88 fL (79.0-98.0); MONOCYTES # (AUTO) 0.7 K/uL (0.0-1.0); MONOCYTES % (AUTO) 3.3 % (1.7-9.3); NEUTROPHILS # (AUTO) 19.5 K/uL (1.8-7.7); PLATELET COUNT (AUTO) 123 K/uL (130-430); RED BLOOD CELL COUNT(AUTO) 4.15 MIL/uL (4.2-6.2); RED CELL DISTRIBUTION WIDTH 14.8 % (9.0-15.0); WHITE BLOOD COUNT (AUTO) 21.3 K/uL (4.8-10.8)
[2016-12-04 07:06] LABS: ALANINE AMINOTRANSFERASE 1950 U/L (12-78); ALBUMIN 2.4 g/dL (3.4-4.8); ANION GAP 14 (5-15); ASPARTATE AMINOTRANSFERASE 312 U/L (10-37); CALCIUM 7.7 mg/dL (8.4-11.0); CHLORIDE 103 mmol/L (98-107); CREATININE 4.42 mg/dL (0.55-1.30); GLUCOSE 373 mg/dL (70-99); POTASSIUM 3.4 mmol/L (3.5-5.1); SODIUM SERUM 142 mmol/L (136-145); TOTAL BILIRUBIN 3.7 mg/dL (0.0-1.0)
[2016-12-04 07:10] LABS: UREA NITROGEN, BLOOD 124 mg/dL (8-21)
[2016-12-04] MEDS: FAMOTIDINE PF 20 MG/2 ML VIAL IVP SCH ×2 (09:10→21:16)
[2016-12-04] MEDS: METOPROLOL SUCCINATE 50 MG TAB.SR.24H (TOPROL XL) PO SCH (09:11)
[2016-12-04] MEDS: HEPARIN SODIUM,PORCINE 5000 UNITS/ML VIAL SUBCUT SCH ×2 (09:15→21:17)
[2016-12-04] MEDS: FUROSEMIDE 40 MG/4 ML VIAL IVP SCH ×2 (09:16→21:16)
[2016-12-04] MEDS: FLUCONAZOLE 200 mg/ NS 100 ML IV SCH (09:29)
[2016-12-04] MEDS: MEROPENEM 500 MG in NS 50 ML IV SCH ×2 (10:50→21:15)
[2016-12-04 12:14] LABS: NEUTROPHILS % (AUTO) 91.8 % (40.0-70.0)
[2016-12-04] MEDS ORDERED: ALBUMIN HUMAN 25% 100 ML IV ONE (13:30)
[2016-12-05] VITALS (29 sets, daily range): BP systolic 88–140
[2016-12-05] MEDS: IPRATROPIUM/ALBUTEROL SULFATE 3 ML AMPUL.NEB INH SCH ×4 (01:23→19:35)
[2016-12-05] MEDS: cloNIDine HCL 0.1 MG TABLET NG SCH ×4 (06:00→17:30)
[2016-12-05 06:46] LABS: MEAN CORPUSCULAR HEMOGLOBIN 29 pg (27-31); MONOCYTES # (AUTO) 1.1 K/uL (0.0-1.0)
[2016-12-05 07:01] LABS: HEMATOCRIT 29.4 % (36-48); HEMOGLOBIN 9.5 g/dL (12.0-16.0); LYMPHOCYTES # (AUTO) 1.3 K/uL (1.0-5.5); LYMPHOCYTES % (AUTO) 5.7 % (20.5-51.5); MEAN CORPUSCULAR HGB CONC 32 % (32-36); MEAN CORPUSCULAR VOLUME 89 fL (79.0-98.0); MONOCYTES % (AUTO) 5.1 % (1.7-9.3); NEUTROPHILS # (AUTO) 19.7 K/uL (1.8-7.7); NEUTROPHILS % (AUTO) 89.2 % (40.0-70.0); RED BLOOD CELL COUNT(AUTO) 3.32 MIL/uL (4.2-6.2); RED CELL DISTRIBUTION WIDTH 15.3 % (9.0-15.0); WHITE BLOOD COUNT (AUTO) 22.1 K/uL (4.8-10.8)
[2016-12-05 07:04] LABS: ALANINE AMINOTRANSFERASE 915 U/L (12-78); ALBUMIN 2.7 g/dL (3.4-4.8); ANION GAP 14 (5-15); ASPARTATE AMINOTRANSFERASE 149 U/L (10-37); CALCIUM 7.4 mg/dL (8.4-11.0); CHLORIDE 106 mmol/L (98-107); CREATININE 4.37 mg/dL (0.55-1.30); GLUCOSE 325 mg/dL (70-99); SODIUM SERUM 145 mmol/L (136-145); TOTAL BILIRUBIN 4.6 mg/dL (0.0-1.0)
[2016-12-05 07:20] LABS: POTASSIUM 2.8 mmol/L (3.5-5.1); UREA NITROGEN, BLOOD 134 mg/dL (8-21)
[2016-12-05 07:55] LABS: PLATELET COUNT (AUTO) 89 K/uL (130-430)
[2016-12-05] MEDS ORDERED: POTASSIUM CHLORIDE 40 MEQ in NS 250 ML IV ONE (08:30)
[2016-12-05] MEDS: MEROPENEM 500 MG in NS 50 ML IV SCH ×2 (08:43→21:03)
[2016-12-05] MEDS: FAMOTIDINE PF 20 MG/2 ML VIAL IVP SCH ×2 (08:43→21:03)
[2016-12-05] MEDS: FUROSEMIDE 40 MG/4 ML VIAL IVP SCH ×2 (08:43→21:03)
[2016-12-05] MEDS: METOPROLOL SUCCINATE 50 MG TAB.SR.24H (TOPROL XL) PO SCH ×2 (08:44→09:00)
[2016-12-05] MEDS: HEPARIN SODIUM,PORCINE 5000 UNITS/ML VIAL SUBCUT SCH ×2 (08:46→21:04)
[2016-12-05] MEDS: FLUCONAZOLE 200 mg/ NS 100 ML IV SCH (10:52)
[2016-12-05] MEDS: VANCOMYCIN HCL 1,250 MG in NS 250 ML IV SCH (12:00)
[2016-12-05] MEDS: ACETAMINOPHEN 650 MG/20.3 ML UDC NG PRN (16:12)
[2016-12-06] VITALS (8 sets, daily range): BP systolic 68–102
[2016-12-06] MEDS: IPRATROPIUM/ALBUTEROL SULFATE 3 ML AMPUL.NEB INH SCH ×3 (00:44→08:00)
[2016-12-06] MEDS: ACETAMINOPHEN 650 MG/20.3 ML UDC NG PRN (01:07)
[2016-12-06] MEDS: LORazepam 2 MG/ML VIAL IVP PRN (02:16)
[2016-12-06] MEDS ORDERED: DOPamine PREMIX 250 ML IV PRN (03:26)
[2016-12-06] MEDS ORDERED: DOPamine PREMIX 250 ML IV ONE ×2 (03:40→07:56)
[2016-12-06] MEDS: cloNIDine HCL 0.1 MG TABLET NG SCH ×2 (06:00)
== END 2016-12-06 08:13 | disposition expired | DRG 353 ==
LOC: SDS 05:07 → SIC 09:12
PROVIDERS: ADMIT Internal Medicine; ATTEND Colon & Rectal Surgery
PROC: 5A1955Z Respiratory Ventilation, Greater than 96 Consecutive Hours (ICD-10-PCS; 2016-11-22)
PROC: 0BH17EZ Insertion of Endotracheal Airway into Trachea, Via Natural or Artificial Opening (ICD-10-PCS; 2016-11-22)
PROC: 0WUF0JZ Supplement Abdominal Wall with Synthetic Substitute, Open Approach (ICD-10-PCS; principal; 2016-11-22 07:30)
PROC: 3E0336Z Introduction of Nutritional Substance into Peripheral Vein, Percutaneous Approach (ICD-10-PCS; 2016-11-26)
PROC: 5A1D60Z (ICD-10-PCS; 2016-11-28)
PROC: 02HV33Z Insertion of Infusion Device into Superior Vena Cava, Percutaneous Approach (ICD-10-PCS; 2016-11-28)
PROC: B548ZZA Ultrasonography of Superior Vena Cava, Guidance (ICD-10-PCS; 2016-11-28)
PROC: 0BH17EZ Insertion of Endotracheal Airway into Trachea, Via Natural or Artificial Opening (ICD-10-PCS; 2016-11-30)
PROC: 02HV33Z Insertion of Infusion Device into Superior Vena Cava, Percutaneous Approach (ICD-10-PCS; 2016-11-30)
PROC: B548ZZA Ultrasonography of Superior Vena Cava, Guidance (ICD-10-PCS; 2016-11-30)
PROC: 02PYX3Z Removal of Infusion Device from Great Vessel, External Approach (ICD-10-PCS; 2016-12-01)
PROC: 02HV33Z Insertion of Infusion Device into Superior Vena Cava, Percutaneous Approach (ICD-10-PCS; 2016-12-01)
DX: K42.0 Umbilical hernia with obstruction, without gangrene (principal); A41.9 Sepsis, unspecified organism; J96.01 Acute respiratory failure with hypoxia; K72.00 Acute and subacute hepatic failure without coma; J18.9 Pneumonia, unspecified organism; N17.9 Acute kidney failure, unspecified; I13.0 Hypertensive heart and chronic kidney disease with heart failure and stage 1 through stage 4 chronic kidney disease, or unspecified chronic kidney disease; G93.41 Metabolic encephalopathy; I50.30 Unspecified diastolic (congestive) heart failure; E46 Unspecified protein-calorie malnutrition; D62 Acute posthemorrhagic anemia; E87.2 Acidosis; N18.4 Chronic kidney disease, stage 4 (severe); J44.0 Chronic obstructive pulmonary disease with (acute) lower respiratory infection; T81.4XXA Infection following a procedure, initial encounter; N39.0 Urinary tract infection, site not specified; T82.514A Breakdown (mechanical) of infusion catheter, initial encounter; F33.1 Major depressive disorder, recurrent, moderate; Z66 Do not resuscitate; D63.8 Anemia in other chronic diseases classified elsewhere; I05.2 Rheumatic mitral stenosis with insufficiency; I49.1 Atrial premature depolarization; E11.65 Type 2 diabetes mellitus with hyperglycemia; E88.09 Other disorders of plasma-protein metabolism, not elsewhere classified; Y83.8 Other surgical procedures as the cause of abnormal reaction of the patient, or of later complication, without mention of misadventure at the time of the procedure; Y92.238 Other place in hospital as the place of occurrence of the external cause; K43.0 Incisional hernia with obstruction, without gangrene; E11.22 Type 2 diabetes mellitus with diabetic chronic kidney disease; E66.01 Morbid (severe) obesity due to excess calories; E11.40 Type 2 diabetes mellitus with diabetic neuropathy, unspecified; K82.8 Other specified diseases of gallbladder; K21.9 Gastro-esophageal reflux disease without esophagitis; M19.90 Unspecified osteoarthritis, unspecified site; C76.51 Malignant neoplasm of right lower limb; E11.649 Type 2 diabetes mellitus with hypoglycemia without coma; M54.16 Radiculopathy, lumbar region; Z86.718 Personal history of other venous thrombosis and embolism; M81.0 Age-related osteoporosis without current pathological fracture; Z90.710 Acquired absence of both cervix and uterus; Z98.49 Cataract extraction status, unspecified eye; Z90.49 Acquired absence of other specified parts of digestive tract; Z68.32 Body mass index [BMI] 32.0-32.9, adult; Z86.010 Personal history of colon polyps; Z88.0 Allergy status to penicillin; Z88.8 Allergy status to other drugs, medicaments and biological substances; Z78.1 Physical restraint status; Y93.89 Activity, other specified; Y99.8 Other external cause status; Z79.899 Other long term (current) drug therapy
CPT/HCPCS: 36415; 36600; 70450-TC; 71010; 71250-TC; 76700-TC; 80053; 81000-TC; 82140-TC; 82150-TC; 82803-TC; 82962; 83605; 83690-TC; 83735-TC; 83880; 84100-TC; 84478-TC; 85007; 85025; 85027; 85610-TC; 85651-TC; 85730-TC; 86706; 86803; 87040-TC; 87070-TC; 87081; 87086; 87205-TC; 87340; 90935; 90937; 93306; 93970; 94002; 94003; 94640; C1751; C1781; J0360; J0610; J1030; J1160; J1170; J1265; J1450; J1630; J1644; J1650; J1815; J1885; J1940; J1956; J2060; J2185; J2250; J2270; J2704; J2930; J3010; J3370; J3465; J3475; J3480; J3490; J7030; J7040; J7050; J7060; J7120; P9046